=== PATIENT | male | born 1935 | race Caucasian/White ===

== ENCOUNTER 2017-03-05 11:13 | Emergency (ER) | payer MEDICARE, BC ==
[~2017-03-05] VITALS: Ht 182.9 cm; Wt 90.7 kg
--- NOTE | 2017-03-05 11:38 | NUR ---
Pt presents to ED with a c/o weakness and right sided rib pain for since yesterday. breathing unlabored and even. denies trauma. denies chest pain. A-fib on manager human resources. pending diagnostic test results. will monitor.
[2017-03-05] MEDS ORDERED: IOHEXOL 350 100 ML INFUS..BTL ONE (11:41)
[2017-03-05] MEDS ORDERED: IV NORMAL SALINE 250 ML IV ONE (11:41)
[2017-03-05 11:46] LABS: BASOPHILS % (AUTO) 0.2 % (0.0-2.0); HEMATOCRIT 48.5 % (36.7-47.1); HEMOGLOBIN 16.4 g/dL (12.5-16.3); LYMPHOCYTES # (AUTO) 1.5 K/uL (20.0-40.0); LYMPHOCYTES % (AUTO) 9.5 % (20.5-51.5); MEAN CORPUSCULAR HEMOGLOBIN 28.9 uug (23.8-33.4); MEAN CORPUSCULAR HGB CONC 34 g/dL (32.5-36.3); MEAN CORPUSCULAR VOLUME 85.5 fL (73.0-96.2); MONOCYTES # (AUTO) 1.5 K/uL (2.0-10.0); MONOCYTES % (AUTO) 9.5 % (0.0-11.0); NEUTROPHILS # (AUTO) 12.9 K/uL (1.8-8.9); NEUTROPHILS % (AUTO) 80.8 % (38.5-71.5); PLATELET COUNT (AUTO) 155 K/uL (152-348); RED BLOOD CELL COUNT(AUTO) 5.67 MIL/uL (4.06-5.63)
[2017-03-05 11:53] LABS: CARBON DIOXIDE 28 mmol/L (21-32); CHLORIDE 102 mmol/L (98-107); CREATININE 1.3 mg/dL (0.6-1.3); GLUCOSE 190 mg/dL (74-106); POTASSIUM 4.2 mmol/L (3.5-5.1); UREA NITROGEN, BLOOD 12 mg/dL (7-18)
[2017-03-05 11:59] LABS: ALANINE AMINOTRANSFERASE 36 U/L (16-63); ALKALINE PHOSPHATASE 82 U/L (50-136); ASPARTATE AMINOTRANSFERASE 28 U/L (15-37); BILIRUBIN,DIRECT 0.2 mg/dL (0.0-0.2); BILIRUBIN,TOTAL 1.2 mg/dL (0.2-1.0); TOTAL PROTEIN, SERUM 7.7 g/dL (6.4-8.2)
--- NOTE | 2017-03-05 12:14 | NUR ---
Pt left for CT with a tech. Consented for CT Angio.
[2017-03-05 12:44] LABS: *BILIRUBIN,URIN NEGATIVE (NEGATIVE); *BLOOD, URINE Trace-lysed (NEGATIVE); *CLARITY,URINE CLEAR (CLEAR); *COLOR,URINE YELLOW (YELLOW); *KETONES,URINE NEGATIVE (NEGATIVE); *PROTEIN,URINE 1+ (NEGATIVE); *UROBILINOGEN,URINE 0.2 E.U./dl (NORMAL); LEUKOCYTE ESTERASE ,URINE NEGATIVE (NEGATIVE); NITRITE, URINE NEGATIVE (NEGATIVE); UGLUCOSE TRACE (NEGATIVE)
[2017-03-05 12:50] LABS: BACTERIA,URINE FEW /HPF (NONE SEEN); RBC,URINE 0-3 /HPF (0-3); SQUAMOUS EPITHELIAL CELL,UR FEW /HPF (NONE SEEN); WBC,URINE 0-3 /HPF (0-3)
--- NOTE | 2017-03-05 14:00 | NUR ---
pt is alert and oriented x 4. breathing unlabored and even. denies any acute distress. A-fib on financial writer. pending re-eval. by bed side. will continue to monitor.
[2017-03-05 14:19] LABS: LIPASE 109 U/L (73-393)
== END 2017-03-05 14:45 | disposition home or self-care (01) ==
LOC: ER 11:13
DX: I48.91 Unspecified atrial fibrillation (principal); J18.9 Pneumonia, unspecified organism; N20.0 Calculus of kidney; I10 Essential (primary) hypertension; I25.10 Atherosclerotic heart disease of native coronary artery without angina pectoris; I70.0 Atherosclerosis of aorta; Z79.82 Long term (current) use of aspirin
CPT/HCPCS: 36415; 70030-TC; 71275; 83690; 85025; 85730; 93005; A4663; C1758; J7050; Q9967

== ENCOUNTER 2023-11-13 10:45 | Inpatient (IN) | payer MEDICARE, BC ==
[~2023-11-13] VITALS: Ht 185.4 cm; Wt 89.4 kg
[2023-11-13] MEDS ORDERED: METO25TA3 PO (11:00)
[2023-11-13] MEDS ORDERED: SPIR1TAB PO (11:00)
[2023-11-13] MEDS ORDERED: APIX5TAB PO (11:00)
[2023-11-13] MEDS ORDERED: ROSU5TAB PO (11:00)
[2023-11-13] MEDS ORDERED: OLME5TAB3 PO (11:00)
[2023-11-13 11:49] LABS: CALCIUM 8.7 mg/dL (8.5-10.1); CARBON DIOXIDE 27 mmol/L (21-32); CHLORIDE 99 mmol/L (98-107); CREATININE 1.1 mg/dL (0.6-1.3); GLUCOSE 137 mg/dL (74-106); POTASSIUM 4.1 mmol/L (3.5-5.1); SODIUM SERUM 137 mmol/L (136-145); UREA NITROGEN, BLOOD 15 mg/dL (7-18)
[2023-11-13 11:50] LABS: AMMONIA < 10 umol/L (11-32)
[2023-11-13 11:55] LABS: ALANINE AMINOTRANSFERASE 26 U/L (16-63); ALBUMIN 3.7 g/dL (3.4-5.0); ALKALINE PHOSPHATASE 84 U/L (50-136); ASPARTATE AMINOTRANSFERASE 20 U/L (15-37); BILIRUBIN,DIRECT 0.2 mg/dL (0.0-0.2); BILIRUBIN,TOTAL 0.9 mg/dL (0.2-1.0); TOTAL PROTEIN, SERUM 7.2 g/dL (6.4-8.2)
[2023-11-13 12:17] LABS: BASOPHILS % (AUTO) 0.4 % (0.0-2.0); HEMATOCRIT 52.8 % (36.7-47.1); HEMOGLOBIN 17.3 g/dL (12.5-16.3); LYMPHOCYTES # (AUTO) 1.5 K/uL (0.8-4.8); LYMPHOCYTES % (AUTO) 14.6 % (20.5-51.5); MEAN CORPUSCULAR HEMOGLOBIN 28.4 uug (23.8-33.4); MEAN CORPUSCULAR HGB CONC 33 g/dL (32.5-36.3); MEAN CORPUSCULAR VOLUME 86.5 fL (73.0-96.2); MONOCYTES # (AUTO) 1.3 K/uL (0.1-1.30); MONOCYTES % (AUTO) 13.3 % (0.0-11.0); NEUTROPHILS # (AUTO) 7.2 K/uL (1.8-8.9); NEUTROPHILS % (AUTO) 71.7 % (38.5-71.5); PLATELET COUNT (AUTO) 143 K/uL (152-348)
[2023-11-13 12:21] LABS: DIFFERENTIAL COMMENT 1; THYROID STIMULATING HORMONE 0.385 mIU/mL (0.358-3.740)
[2023-11-13] MEDS ORDERED: ONDANSETRON 4 MG/2 ML VIAL IV PRN (15:15)
[2023-11-13] MEDS ORDERED: MAGNESIUM HYDROXIDE 30 ML LIQUID UDC PO PRN (15:15)
[2023-11-13] MEDS ORDERED: ACETAMINOPHEN 325 MG TABLET PO PRN (15:15)
[2023-11-13] MEDS ORDERED: REMEDY ESSENTIAL ZINC PASTE 113 GM TP PRN (15:15)
[2023-11-13 17:33] VITALS: BP 167/74; TEMP 98.6; O2SAT 93
[2023-11-13] MEDS ORDERED: APIXABAN 5 MG TABLET PO SCH (17:45)
[2023-11-13] MEDS ORDERED: METOPROLOL SUCCINATE XL 25 MG TAB.SR.24H PO SCH (17:45)
[2023-11-13] MEDS ORDERED: APIX2.5T PO (18:18)
[2023-11-13] MEDS ORDERED: APIXABAN 5 MG TABLET PO ONE (18:30)
[2023-11-13] MEDS: METOPROLOL SUCCINATE XL 50 MG TAB.SR.24H PO SCH (18:49)
[2023-11-13 20:10] VITALS: BP 158/104; TEMP 98.6; O2SAT 96
[2023-11-13] MEDS: ATORVASTATIN 40 MG TABLET PO SCH (20:29)
[2023-11-13] MEDS: IV 1/2NS 1000 ML 1,000 ML IV PRN (20:29)
[2023-11-13] MEDS: APIXABAN 2.5 MG TABLET PO SCH (21:00)
[2023-11-14 00:26] VITALS: BP 145/99; TEMP 98.1
[2023-11-14 02:55] LABS: *BILIRUBIN,URIN NEGATIVE (NEGATIVE); *CLARITY,URINE CLEAR (CLEAR); *COLOR,URINE YELLOW (YELLOW); *KETONES,URINE NEGATIVE (NEGATIVE); *PROTEIN,URINE 1+ (NEGATIVE); *UROBILINOGEN,URINE 0.2 E.U./dl (NORMAL); LEUKOCYTE ESTERASE ,URINE NEGATIVE (NEGATIVE); NITRITE, URINE NEGATIVE (NEGATIVE); UGLUCOSE NEGATIVE (NEGATIVE)
[2023-11-14 04:49] VITALS: BP 146/99
[2023-11-14 05:40] LABS: *BLOOD, URINE TRACE (NEGATIVE)
[2023-11-14 05:54] LABS: BACTERIA,URINE FEW /HPF (NONE SEEN); RBC,URINE 0-3 /HPF (0-3); SQUAMOUS EPITHELIAL CELL,UR FEW /HPF (NONE SEEN); WBC,URINE NONE SEEN /HPF (0-3)
[2023-11-14 07:29] VITALS: BP 166/115; TEMP 98.3
[2023-11-14 07:42] VITALS: BP 140/87; TEMP 97.5; O2SAT 97
[2023-11-14 07:52] LABS: BASOPHILS % (AUTO) 0.4 % (0.0-2.0); HEMATOCRIT 47.5 % (36.7-47.1); HEMOGLOBIN 16.1 g/dL (12.5-16.3); LYMPHOCYTES # (AUTO) 1.3 K/uL (0.8-4.8); LYMPHOCYTES % (AUTO) 13.3 % (20.5-51.5); MEAN CORPUSCULAR HEMOGLOBIN 29.1 uug (23.8-33.4); MEAN CORPUSCULAR HGB CONC 34 g/dL (32.5-36.3); MONOCYTES # (AUTO) 1.4 K/uL (0.1-1.30); MONOCYTES % (AUTO) 13.4 % (0.0-11.0); NEUTROPHILS # (AUTO) 7.3 K/uL (1.8-8.9); NEUTROPHILS % (AUTO) 72.9 % (38.5-71.5); PLATELET COUNT (AUTO) 125 K/uL (152-348); RED BLOOD CELL COUNT(AUTO) 5.53 MIL/uL (4.06-5.63); RED CELL DISTRIBUTION WIDTH 14.7 % (12.1-16.2); WHITE BLOOD COUNT (AUTO) 10.1 K/uL (3.6-10.2)
[2023-11-14 07:54] LABS: DIFFERENTIAL COMMENT 1
[2023-11-14 08:01] LABS: ALANINE AMINOTRANSFERASE 24 U/L (16-63); ALBUMIN 3.1 g/dL (3.4-5.0); ALKALINE PHOSPHATASE 69 U/L (50-136); ASPARTATE AMINOTRANSFERASE 27 U/L (15-37); BILIRUBIN,TOTAL 0.9 mg/dL (0.2-1.0); CALCIUM 8.4 mg/dL (8.5-10.1); CARBON DIOXIDE 22 mmol/L (21-32); CHLORIDE 101 mmol/L (98-107); GLUCOSE 142 mg/dL (74-106); MAGNESIUM 1.9 mg/dL (1.8-2.4); PHOSPHOROUS 3.3 mg/dL (2.5-4.9); POTASSIUM 4.1 mmol/L (3.5-5.1); SODIUM SERUM 135 mmol/L (136-145); TOTAL PROTEIN, SERUM 6.4 g/dL (6.4-8.2); UREA NITROGEN, BLOOD 20 mg/dL (7-18)
[2023-11-14] MEDS ORDERED: SPIRONOLACTONE 50 MG TABLET PO SCH (09:00)
[2023-11-14] MEDS: SPIRONOLACTONE 25 MG TABLET PO SCH (09:46)
[2023-11-14 15:57] VITALS: BP 128/77; TEMP 97.6; O2SAT 97
[2023-11-14 20:37] VITALS: BP 157/94; TEMP 98.4; O2SAT 96
[2023-11-15 00:12] VITALS: BP 147/77; TEMP 98.5; O2SAT 97
[2023-11-15 04:00] VITALS: BP 160/86; TEMP 98.6; O2SAT 96
[2023-11-15 07:28] VITALS: BP 152/101; TEMP 98.5; O2SAT 97
[2023-11-15 09:45] LABS: ABG BASE EXCESS -0.5 mmol/L (-2.0-2.0); ABG PCO2 31.4 mmHg (35.0-48.0); ABG PH 7.463 (7.340-7.440); ABG PO2 65.9 mmHg (75.0-100.0); ABG SITE LEFT RADIAL; ABG TOTAL HEMOGLOBIN 17.9 G/dL (14.0-18.0); AaDO2 94.3 mmHg; COHb 0.6 % (0.0-3.9); MetHb 0.2 % (0.0-1.5); O2Hb 93.5 % (94.0-97.0)
[2023-11-15 09:48] LABS: BASOPHILS % (AUTO) 0.2 % (0.0-2.0); HEMATOCRIT 50.5 % (36.7-47.1); HEMOGLOBIN 16.9 g/dL (12.5-16.3); LYMPHOCYTES # (AUTO) 1.9 K/uL (0.8-4.8); LYMPHOCYTES % (AUTO) 19.7 % (20.5-51.5); MEAN CORPUSCULAR HEMOGLOBIN 28.9 uug (23.8-33.4); MEAN CORPUSCULAR HGB CONC 34 g/dL (32.5-36.3); MONOCYTES # (AUTO) 1.2 K/uL (0.1-1.30); MONOCYTES % (AUTO) 12.3 % (0.0-11.0); NEUTROPHILS # (AUTO) 6.7 K/uL (1.8-8.9); NEUTROPHILS % (AUTO) 67.8 % (38.5-71.5); PLATELET COUNT (AUTO) 130 K/uL (152-348); RED BLOOD CELL COUNT(AUTO) 5.87 MIL/uL (4.06-5.63); RED CELL DISTRIBUTION WIDTH 14.8 % (12.1-16.2); WHITE BLOOD COUNT (AUTO) 9.9 K/uL (3.6-10.2)
[2023-11-15 09:55] LABS: DIFFERENTIAL COMMENT 1
[2023-11-15 10:15] LABS: ALANINE AMINOTRANSFERASE 25 U/L (16-63); ALKALINE PHOSPHATASE 72 U/L (50-136); ASPARTATE AMINOTRANSFERASE 27 U/L (15-37); CALCIUM 8.2 mg/dL (8.5-10.1); CARBON DIOXIDE 27 mmol/L (21-32); CHLORIDE 97 mmol/L (98-107); CREATININE 1.2 mg/dL (0.6-1.3); GLUCOSE 141 mg/dL (74-106); NT-PRO BNP 1008 pg/mL (0-125); POTASSIUM 3.9 mmol/L (3.5-5.1); SODIUM SERUM 133 mmol/L (136-145); TOTAL PROTEIN, SERUM 6.8 g/dL (6.4-8.2); UREA NITROGEN, BLOOD 19 mg/dL (7-18)
[2023-11-15 10:16] LABS: C-REACTIVE PROTEIN 7.38 mg/dL (0.00-0.30)
[2023-11-15 11:31] VITALS: BP 150/95; TEMP 98.2; O2SAT 96
[2023-11-15] MEDS: FUROSEMIDE 20 MG/2 ML VIAL IV ONE (14:13)
[2023-11-15 15:09] LABS: THYROID STIMULATING HORMONE 1.313 mIU/mL (0.358-3.740)
[2023-11-15 16:16] VITALS: BP 128/77; TEMP 98.5; O2SAT 95
[2023-11-15] MEDS: BLOOD SUGAR DIAGNOSTIC 1 EACH STRIP VI SCH (17:45)
[2023-11-15] MEDS ORDERED: DEXTROSE 50% 50 ML DISP.SYRIN IV PRN (17:45)
[2023-11-15 19:57] VITALS: BP 137/90; TEMP 97.9; O2SAT 95
[2023-11-15] MEDS: INSULIN REGULAR, HUMAN 300 UNITS/3 ML VIAL SQ PRN (20:42)
[2023-11-16 00:05] VITALS: BP 120/73; TEMP 97.7; O2SAT 95
[2023-11-16 04:11] VITALS: BP 143/80; TEMP 98.4; O2SAT 94
[2023-11-16 06:24] LABS: BASOPHILS % (AUTO) 0.3 % (0.0-2.0); EOSINOPHILS % (AUTO) 0.5 % (0.0-7.0); HEMATOCRIT 50.2 % (36.7-47.1); HEMOGLOBIN 17.1 g/dL (12.5-16.3); LYMPHOCYTES # (AUTO) 1.8 K/uL (0.8-4.8); LYMPHOCYTES % (AUTO) 25.4 % (20.5-51.5); MEAN CORPUSCULAR HEMOGLOBIN 29.1 uug (23.8-33.4); MEAN CORPUSCULAR HGB CONC 34 g/dL (32.5-36.3); MEAN CORPUSCULAR VOLUME 85.5 fL (73.0-96.2); MONOCYTES % (AUTO) 13.5 % (0.0-11.0); NEUTROPHILS # (AUTO) 4.4 K/uL (1.8-8.9); NEUTROPHILS % (AUTO) 60.3 % (38.5-71.5); PLATELET COUNT (AUTO) 121 K/uL (152-348); RED BLOOD CELL COUNT(AUTO) 5.87 MIL/uL (4.06-5.63); RED CELL DISTRIBUTION WIDTH 14.5 % (12.1-16.2); WHITE BLOOD COUNT (AUTO) 7.3 K/uL (3.6-10.2)
[2023-11-16 06:28] LABS: DIFFERENTIAL COMMENT 1
[2023-11-16 06:37] LABS: CALCIUM 8.4 mg/dL (8.5-10.1); CARBON DIOXIDE 25 mmol/L (21-32); CHLORIDE 100 mmol/L (98-107); CREATININE 1.1 mg/dL (0.6-1.3); GLUCOSE 118 mg/dL (74-106); MAGNESIUM 1.9 mg/dL (1.8-2.4); POTASSIUM 3.3 mmol/L (3.5-5.1); SODIUM SERUM 134 mmol/L (136-145); UREA NITROGEN, BLOOD 23 mg/dL (7-18)
[2023-11-16 07:54] VITALS: BP 122/84; TEMP 97; O2SAT 93
[2023-11-16] MEDS: INSULIN REGULAR, HUMAN 1000 UNIT/10 ML VIAL SQ PRN (11:22)
[2023-11-16 11:33] VITALS: BP 120/76; TEMP 97.8; O2SAT 93
[2023-11-16] MEDS: POTASSIUM CHLORIDE 20 MEQ TAB.PRT.SR PO ONE (13:10)
[2023-11-16 16:31] VITALS: BP 106/74; TEMP 97.7; O2SAT 97
[2023-11-16 19:00] VITALS: BP 133/81; TEMP 98.5; O2SAT 94
[2023-11-17] VITALS (8 sets, daily range): BP systolic 121–155; BP diastolic 70–94; TEMP 97.6–98.5; O2SAT 94–96
[2023-11-17] MEDS: AMLODIPINE 5 MG TABLET PO SCH (10:05)
[2023-11-18 04:00] VITALS: BP 147/86; TEMP 98.5; O2SAT 86
[2023-11-18 04:15] VITALS: BP 147/86; TEMP 98.5; O2SAT 94
[2023-11-18 06:58] LABS: CALCIUM 8.6 mg/dL (8.5-10.1); CARBON DIOXIDE 30 mmol/L (21-32); CHLORIDE 100 mmol/L (98-107); CREATININE 1.2 mg/dL (0.6-1.3); GLUCOSE 134 mg/dL (74-106); MAGNESIUM 1.7 mg/dL (1.8-2.4); PHOSPHOROUS 3.1 mg/dL (2.5-4.9); POTASSIUM 3.9 mmol/L (3.5-5.1); SODIUM SERUM 136 mmol/L (136-145); UREA NITROGEN, BLOOD 18 mg/dL (7-18)
[2023-11-18 07:01] LABS: BASOPHILS % (AUTO) 0.2 % (0.0-2.0); DIFFERENTIAL COMMENT 1; EOSINOPHILS % (AUTO) 0.2 % (0.0-7.0); HEMATOCRIT 49.7 % (36.7-47.1); HEMOGLOBIN 16.6 g/dL (12.5-16.3); LYMPHOCYTES # (AUTO) 1.2 K/uL (0.8-4.8); LYMPHOCYTES % (AUTO) 8.8 % (20.5-51.5); MEAN CORPUSCULAR HEMOGLOBIN 28.6 uug (23.8-33.4); MEAN CORPUSCULAR HGB CONC 33 g/dL (32.5-36.3); MEAN CORPUSCULAR VOLUME 85.7 fL (73.0-96.2); MONOCYTES # (AUTO) 0.9 K/uL (0.1-1.30); MONOCYTES % (AUTO) 6.5 % (0.0-11.0); NEUTROPHILS # (AUTO) 11.3 K/uL (1.8-8.9); NEUTROPHILS % (AUTO) 84.3 % (38.5-71.5); PLATELET COUNT (AUTO) 146 K/uL (152-348); RED CELL DISTRIBUTION WIDTH 14.4 % (12.1-16.2); WHITE BLOOD COUNT (AUTO) 13.4 K/uL (3.6-10.2)
[2023-11-18 11:35] VITALS: BP 141/85; TEMP 97.8; O2SAT 96
[2023-11-18] MEDS: MAGNESIUM OXIDE 400 MG TABLET PO ONE (12:10)
[2023-11-18] MEDS ORDERED: ALBUTEROL SULFATE 1.25 MG/3 ML NEBU NEB PRN (13:45)
[2023-11-18] MEDS ORDERED: ACET325T53 PO (14:02)
[2023-11-18] MEDS ORDERED: SPIR25TA PO (14:02)
[2023-11-18] MEDS ORDERED: APIX2.5T PO (14:02)
[2023-11-18] MEDS ORDERED: MAGN400O6 PO (14:02)
[2023-11-18] MEDS ORDERED: AMLO-212 PO (14:02)
[2023-11-18] MEDS ORDERED: FAMO10TA41 PO (14:02)
[2023-11-18] MEDS ORDERED: MULT-1045 PO (14:02)
[2023-11-18] MEDS ORDERED: ASCO500C18 PO (14:02)
[2023-11-18] MEDS ORDERED: ALBU1.25 NEB (14:02)
[2023-11-18] MEDS ORDERED: METO-357 PO (14:02)
[2023-11-18] MEDS ORDERED: MENT113O TP (14:02)
[2023-11-18] MEDS ORDERED: ATOR10TA PO (14:05)
[2023-11-18 16:00] VITALS: BP 134/71; TEMP 97.3; O2SAT 95
== END 2023-11-18 19:03 | DRG 177 ==
LOC: ER 10:45 → TELE3 15:55 → MEDSURG3 11-17 09:17
PROVIDERS: ADMIT Internal Medicine; ATTEND Internal Medicine
DX: U07.1 COVID-19 (principal); G92.8 Other toxic encephalopathy; I50.23 Acute on chronic systolic (congestive) heart failure; J12.82 Pneumonia due to coronavirus disease 2019; D68.69 Other thrombophilia; G91.9 Hydrocephalus, unspecified; I48.20 Chronic atrial fibrillation, unspecified; I48.91 Unspecified atrial fibrillation; D72.829 Elevated white blood cell count, unspecified; E11.9 Type 2 diabetes mellitus without complications; E83.42 Hypomagnesemia; E87.6 Hypokalemia; Z79.01 Long term (current) use of anticoagulants; Z86.73 Personal history of transient ischemic attack (TIA), and cerebral infarction without residual deficits; I25.10 Atherosclerotic heart disease of native coronary artery without angina pectoris; I25.2 Old myocardial infarction; G93.89 Other specified disorders of brain; I11.0 Hypertensive heart disease with heart failure; Z86.61 Personal history of infections of the central nervous system; F01.50 Vascular dementia, unspecified severity, without behavioral disturbance, psychotic disturbance, mood disturbance, and anxiety; R93.1 Abnormal findings on diagnostic imaging of heart and coronary circulation
CPT/HCPCS: 36415; 36600; 70450; 71045; 82803; 83735; 83921; 84100; 84443; 85025; 85730; 86140; 93005; 93307; 94640; A4663; A6213; C1758; G0378; J1815; J1940

== ENCOUNTER 2024-09-24 01:05 | Inpatient (IN) | payer MEDICARE, BC ==
[~2024-09-24] VITALS: Ht 182.9 cm; Wt 82.6 kg
[2024-09-24] VITALS (9 sets, daily range): BP systolic 90–157; BP diastolic 56–91; TEMP 97.4–98.6; O2SAT 95–98
[~2024-09-24 01:05] MED LIST: ACET325T53 PO; ALBU1.25 NEB; AMLO-212 PO; APIX2.5T PO; ASCO500C18 PO; ATOR10TA PO; FAMO10TA41 PO; MAGN400O6 PO; MENT113O TP; METO-357 PO; MULT-1045 PO; SPIR25TA PO
[2024-09-24 01:30] LABS: PLATELET COUNT (AUTO) 173 K/uL (179-408); RED BLOOD CELL COUNT(AUTO) 5.25 MIL/uL (3.63-4.92); RED CELL DISTRIBUTION WIDTH 17.6 % (12.3-17.7); WHITE BLOOD COUNT (AUTO) 16.3 K/uL (3.8-11.8)
[2024-09-24 01:38] LABS: CREATININE 1.1 mg/dL (0.6-1.3); SODIUM SERUM 141 mmol/L (136-145); UREA NITROGEN, BLOOD 12 mg/dL (7-18)
[2024-09-24 01:44] LABS: ASPARTATE AMINOTRANSFERASE 14 U/L (15-37); TOTAL PROTEIN, SERUM 6.6 g/dL (6.4-8.2)
[2024-09-24] MEDS: CEFTRIAXONE 1 G in IV DEXTROSE 5% 50 ML IV ONE (02:31)
[2024-09-24] MEDS ORDERED: CEFTRIAXONE /D5W 50ML IVPB **ER PYXIS IV ONE (02:32)
[2024-09-24] MEDS ORDERED: AZITHROMYCIN 500MG/ D5W 250ML IVPB **ER PYXIS ONLY IV ONE (02:46)
[2024-09-24] MEDS ORDERED: METF-440 PO (02:51)
[2024-09-24] MEDS ORDERED: ATOR10TA PO (02:51)
[2024-09-24] MEDS ORDERED: SACU1TAB PO (02:51)
[2024-09-24] MEDS ORDERED: METO-356 PO (02:51)
[2024-09-24] MEDS ORDERED: APIX5TAB PO (02:51)
[2024-09-24] MEDS ORDERED: DIGO125T PO (02:51)
[2024-09-24] MEDS: AZITHROMYCIN IV 500 MG in IV DEXTROSE 5% 250 ML IV ONE (02:54)
[2024-09-24] MEDS ORDERED: ACETAMINOPHEN 325 MG TABLET PO PRN (03:00)
[2024-09-24] MEDS ORDERED: ONDANSETRON 4 MG/2 ML VIAL IV PRN (03:00)
[2024-09-24] MEDS ORDERED: REMEDY ESSENTIAL ZINC PASTE 113 GM TP PRN (03:00)
[2024-09-24] MEDS ORDERED: MAGNESIUM HYDROXIDE 30 ML LIQUID UDC PO PRN (03:00)
[2024-09-24 03:23] LABS: *BILIRUBIN,URIN NEGATIVE (NEGATIVE); *BLOOD, URINE 1+ (NEGATIVE); *CLARITY,URINE CLEAR (CLEAR); *COLOR,URINE YELLOW (YELLOW); *KETONES,URINE NEGATIVE (NEGATIVE); *PROTEIN,URINE TRACE (NEGATIVE); *UROBILINOGEN,URINE 0.2 E.U./dl (NORMAL); LEUKOCYTE ESTERASE ,URINE 2+ (NEGATIVE); NITRITE, URINE POSITIVE (NEGATIVE); UGLUCOSE NEGATIVE (NEGATIVE)
[2024-09-24 05:20] LABS: SQUAMOUS EPITHELIAL CELL,UR NONE SEEN /HPF (NONE SEEN)
[2024-09-24] MEDS: PANTOPRAZOLE SODIUM 40 MG TABLET.DR PO SCH (06:39)
[2024-09-24] MEDS ORDERED: ATOR20TA PO (10:58)
[2024-09-24] MEDS: APIXABAN 5 MG TABLET PO SCH (12:47)
[2024-09-24] MEDS ORDERED: DIGO125T5 PO (18:31)
[2024-09-24] MEDS: ATORVASTATIN 20 MG TABLET PO SCH (20:23)
[2024-09-24] MEDS: CEFTRIAXONE 1 G in IV DEXTROSE 5% 50 ML IV SCH (21:19)
[2024-09-24] MEDS: AZITHROMYCIN IV 500 MG in IV DEXTROSE 5% 250 ML IV SCH (22:14)
[2024-09-25 07:48] VITALS: BP 123/67; TEMP 97.9; O2SAT 96
[2024-09-25] MEDS: METOPROLOL SUCCINATE XL 25 MG TAB.SR.24H PO SCH (08:51)
[2024-09-25 09:07] LABS: PLATELET COUNT (AUTO) 193 K/uL (152-348); RED BLOOD CELL COUNT(AUTO) 5.27 MIL/uL (4.06-5.63); RED CELL DISTRIBUTION WIDTH 17.4 % (12.1-16.2); WHITE BLOOD COUNT (AUTO) 10.9 K/uL (3.6-10.2)
[2024-09-25 09:17] LABS: CREATININE 0.9 mg/dL (0.6-1.3); SODIUM SERUM 140 mmol/L (136-145); UREA NITROGEN, BLOOD 8 mg/dL (7-18)
[2024-09-25 12:00] VITALS: BP 121/68; TEMP 98; O2SAT 95
[2024-09-25 16:10] VITALS: BP 124/73; TEMP 98; O2SAT 97
[2024-09-25 19:40] VITALS: BP 117/64; TEMP 98.4; O2SAT 96
[2024-09-26] VITALS: BP 130/79; TEMP 97.5; O2SAT 97
[2024-09-26 04:00] VITALS: BP 153/78; TEMP 97.5; O2SAT 96
[2024-09-26 07:30] LABS: PLATELET COUNT (AUTO) 199 K/uL (152-348); RED BLOOD CELL COUNT(AUTO) 5.09 MIL/uL (4.06-5.63); RED CELL DISTRIBUTION WIDTH 17.3 % (12.1-16.2); WHITE BLOOD COUNT (AUTO) 9.1 K/uL (3.6-10.2)
[2024-09-26] MEDS: CEFTRIAXONE 1 G in IV DEXTROSE 5% 50 ML IV SCH (07:40)
[2024-09-26 07:52] LABS: CREATININE 1.2 mg/dL (0.6-1.3); SODIUM SERUM 139 mmol/L (136-145); UREA NITROGEN, BLOOD 10 mg/dL (7-18)
[2024-09-26 07:53] VITALS: BP 120/67; TEMP 97.4; O2SAT 96
[2024-09-26] MEDS: AZITHROMYCIN IV 500 MG in IV DEXTROSE 5% 250 ML IV SCH (08:44)
[2024-09-26 16:00] VITALS: BP 118/72; TEMP 97.6; O2SAT 97
[2024-09-26 19:50] VITALS: BP 141/60; TEMP 97.4; O2SAT 98
[2024-09-27 00:11] VITALS: BP 142/83; TEMP 97.8; O2SAT 98
[2024-09-27 05:03] VITALS: BP 138/76; TEMP 97.7; O2SAT 97
[2024-09-27 07:02] LABS: PLATELET COUNT (AUTO) 218 K/uL (152-348); RED BLOOD CELL COUNT(AUTO) 5.00 MIL/uL (4.06-5.63); RED CELL DISTRIBUTION WIDTH 16.9 % (12.1-16.2); WHITE BLOOD COUNT (AUTO) 8.9 K/uL (3.6-10.2)
[2024-09-27 07:29] LABS: CREATININE 1.0 mg/dL (0.6-1.3); SODIUM SERUM 139 mmol/L (136-145); UREA NITROGEN, BLOOD 12 mg/dL (7-18)
[2024-09-27 08:00] VITALS: BP 143/66; TEMP 97.3; O2SAT 97
[2024-09-27] MEDS ORDERED: ACET325T53 PO ×2 (11:06→16:47)
[2024-09-27] MEDS ORDERED: CEFT1VIA15 IV (11:06)
[2024-09-27] MEDS ORDERED: MAGN400O6 PO ×2 (11:06→16:48)
[2024-09-27] MEDS ORDERED: PANT40TA49 PO (11:06)
[2024-09-27] MEDS ORDERED: ONDA4VIA23 IV ×2 (11:06→16:49)
[2024-09-27 12:00] VITALS: BP 121/62; TEMP 97.5; O2SAT 98
[2024-09-27] MEDS ORDERED: CEFT1FRO2 IV (16:51)
== END 2024-09-27 15:40 | DRG 73 ==
LOC: EDSEX 01:08 → ER 01:08 → MERGE 03:05 → TELE3 03:05 → MEDSURG3 09-27 10:10
PROVIDERS: ADMIT Student in an Organized Health Care Education/Training Program; ATTEND Nurse Practitioner Family
DX: G90.89 Other disorders of autonomic nervous system (principal); G93.41 Metabolic encephalopathy; N39.0 Urinary tract infection, site not specified; I69.354 Hemiplegia and hemiparesis following cerebral infarction affecting left non-dominant side; I42.9 Cardiomyopathy, unspecified; I50.22 Chronic systolic (congestive) heart failure; I48.20 Chronic atrial fibrillation, unspecified; I95.1 Orthostatic hypotension; B96.89 Other specified bacterial agents as the cause of diseases classified elsewhere; G93.89 Other specified disorders of brain; Z79.01 Long term (current) use of anticoagulants; Z79.899 Other long term (current) drug therapy; I11.0 Hypertensive heart disease with heart failure; E78.5 Hyperlipidemia, unspecified; E11.9 Type 2 diabetes mellitus without complications; Z79.84 Long term (current) use of oral hypoglycemic drugs; Z98.890 Other specified postprocedural states; E88.09 Other disorders of plasma-protein metabolism, not elsewhere classified
CPT/HCPCS: 36415; 70450; 71045; 83735; 84100; 84443; 84484; 85025; 85730; 87040; 87086; 93307; 93880; A4606; A4663; C1758; G0378; J0456; J0696; J7040; J7050

== ENCOUNTER 2024-09-27 13:51 | Inpatient (IN) | payer MEDICARE, BC ==
[~2024-09-27] VITALS: Ht 182.9 cm; Wt 82.6 kg
[~2024-09-27 13:51] MED LIST changes: +APIX5TAB PO; +ATOR20TA PO; +CEFT1VIA15 IV; +DIGO125T5 PO; +METO-356 PO; +ONDA4VIA23 IV; +PANT40TA49 PO
[2024-09-27 13:57] VITALS: BP 121/62; TEMP 97.7
[2024-09-27 14:22] VITALS: BP 121/62; TEMP 97.7
[2024-09-27 16:00] VITALS: BP 116/71; TEMP 97.4; O2SAT 98
[2024-09-27] MEDS ORDERED: ACET325T53 PO (16:47)
[2024-09-27] MEDS ORDERED: MAGN400O6 PO (16:48)
[2024-09-27] MEDS ORDERED: ONDA4VIA23 IV (16:49)
[2024-09-27] MEDS ORDERED: CEFT1FRO2 IV (16:51)
[2024-09-27] MEDS ORDERED: ONDANSETRON 4 MG/2 ML VIAL IV PRN (18:30)
[2024-09-27] MEDS ORDERED: ACETAMINOPHEN 325 MG TABLET-SA PATIENTS-PAIN ONLY PO PRN (18:30)
[2024-09-27 19:53] VITALS: BP 112/67; TEMP 97.9; O2SAT 96
[2024-09-27] MEDS: ATORVASTATIN 20 MG TABLET PO SCH (20:49)
[2024-09-27] MEDS: APIXABAN 5 MG TABLET PO SCH (20:55)
[2024-09-28 05:20] VITALS: BP 115/69; TEMP 98; O2SAT 96
[2024-09-28] MEDS ORDERED: ONDANSETRON 4 MG/2 ML VIAL IV PRN (05:45)
[2024-09-28] MEDS ORDERED: ACETAMINOPHEN 325 MG TABLET PO PRN (05:45)
[2024-09-28] MEDS: PANTOPRAZOLE SODIUM 40 MG TABLET.DR PO SCH (06:06)
[2024-09-28 08:23] VITALS: BP 128/95; TEMP 97.8; O2SAT 96
[2024-09-28] MEDS: DIGOXIN 125 MCG TABLET PO SCH (08:28)
[2024-09-28] MEDS: METOPROLOL SUCCINATE XL 25 MG TAB.SR.24H PO SCH (08:28)
[2024-09-28] MEDS: CEFTRIAXONE 1 G in IV DEXTROSE 5% 50 ML IV SCH (09:46)
[2024-09-28 16:48] VITALS: BP 117/53; TEMP 97.7; O2SAT 99
[2024-09-28 19:55] VITALS: BP 110/78; TEMP 97.7; O2SAT 98
[2024-09-28] MEDS: MAGNESIUM HYDROXIDE 30 ML LIQUID UDC PO PRN (22:04)
[2024-09-28 23:03] LABS: *BILIRUBIN,URIN NEGATIVE (NEGATIVE); *CLARITY,URINE CLEAR (CLEAR); *COLOR,URINE YELLOW (YELLOW); *KETONES,URINE NEGATIVE (NEGATIVE); *PROTEIN,URINE NEGATIVE (NEGATIVE); *UROBILINOGEN,URINE 0.2 E.U./dl (NORMAL); LEUKOCYTE ESTERASE ,URINE 1+ (NEGATIVE); NITRITE, URINE NEGATIVE (NEGATIVE); UGLUCOSE NEGATIVE (NEGATIVE)
[2024-09-28 23:05] LABS: *BLOOD, URINE TRACE (NEGATIVE)
[2024-09-28 23:08] LABS: SQUAMOUS EPITHELIAL CELL,UR NONE SEEN /HPF (NONE SEEN)
[2024-09-29 05:47] VITALS: BP 122/73; TEMP 97.6; O2SAT 97
[2024-09-29 08:22] VITALS: BP 113/67; TEMP 97.6; O2SAT 95
[2024-09-29 18:53] VITALS: BP 122/50; TEMP 97.6; O2SAT 94
[2024-09-29 20:00] VITALS: BP 104/48; TEMP 97.5; O2SAT 96
[2024-09-30 06:29] VITALS: BP 123/67; TEMP 97.5; O2SAT 97
[2024-09-30 08:00] VITALS: BP 116/77; TEMP 97.1; O2SAT 97
[2024-09-30 16:00] VITALS: BP 123/68; TEMP 97.1; O2SAT 97
[2024-09-30 20:00] VITALS: BP 119/68; TEMP 98.4
[2024-10-01 07:04] VITALS: BP 115/67; TEMP 97.8
[2024-10-01 13:33] LABS: PLATELET COUNT (AUTO) 261 K/uL (152-348); RED BLOOD CELL COUNT(AUTO) 5.09 MIL/uL (4.06-5.63); RED CELL DISTRIBUTION WIDTH 16.9 % (12.1-16.2); WHITE BLOOD COUNT (AUTO) 10.6 K/uL (3.6-10.2)
[2024-10-01 13:50] LABS: ASPARTATE AMINOTRANSFERASE 14 U/L (15-37); CREATININE 0.9 mg/dL (0.6-1.3); SODIUM SERUM 140 mmol/L (136-145); TOTAL PROTEIN, SERUM 7.0 g/dL (6.4-8.2); UREA NITROGEN, BLOOD 15 mg/dL (7-18)
[2024-10-01 16:01] VITALS: BP 129/62; TEMP 98.2; O2SAT 97
[2024-10-01 20:09] VITALS: BP 104/56; TEMP 97.8; O2SAT 98
[2024-10-02 05:56] VITALS: BP 155/77; TEMP 98.1; O2SAT 95
[2024-10-02 08:02] VITALS: BP 118/43; TEMP 97.9; O2SAT 96
[2024-10-02 20:05] VITALS: BP 113/64; TEMP 98; O2SAT 95
[2024-10-03 08:31] VITALS: BP 132/73; TEMP 97.8; O2SAT 97
[2024-10-03 16:12] VITALS: BP 115/62; TEMP 98; O2SAT 99
[2024-10-03 20:39] VITALS: BP 115/66; TEMP 98.2; O2SAT 95
[2024-10-04 06:56] VITALS: BP 117/52; TEMP 97.5; O2SAT 95
[2024-10-04 08:16] VITALS: BP 133/65; TEMP 98; O2SAT 97
[2024-10-04 08:59] VITALS: BP 142/96; TEMP 97.6; O2SAT 97
[2024-10-04 17:37] VITALS: BP 106/59; TEMP 97.4; O2SAT 95
[2024-10-04 20:45] VITALS: BP 105/54; TEMP 97.6; O2SAT 96
[2024-10-05 06:23] VITALS: BP 123/66; TEMP 97.6; O2SAT 96
[2024-10-05 13:16] LABS: PLATELET COUNT (AUTO) 310 K/uL (152-348); RED BLOOD CELL COUNT(AUTO) 5.35 MIL/uL (4.06-5.63); RED CELL DISTRIBUTION WIDTH 16.4 % (12.1-16.2); WHITE BLOOD COUNT (AUTO) 8.0 K/uL (3.6-10.2)
[2024-10-05 13:35] LABS: ASPARTATE AMINOTRANSFERASE 16 U/L (15-37); CREATININE 0.9 mg/dL (0.6-1.3); SODIUM SERUM 138 mmol/L (136-145); TOTAL PROTEIN, SERUM 7.3 g/dL (6.4-8.2); UREA NITROGEN, BLOOD 14 mg/dL (7-18)
[2024-10-05] MEDS: ENSURE ENLIVE (VAN) 240 ML LIQUID PO SCH (17:06)
[2024-10-05 20:58] VITALS: BP 121/58; TEMP 97.2; O2SAT 95
[2024-10-06 06:51] VITALS: BP 137/86; TEMP 97.7; O2SAT 97
[2024-10-06 08:20] VITALS: BP 122/66; TEMP 97; O2SAT 95
[2024-10-06 16:39] VITALS: BP 100/50; TEMP 97.8; O2SAT 98
[2024-10-06 20:24] VITALS: BP 100/62; TEMP 97.6; O2SAT 97
[2024-10-07 05:09] VITALS: BP 111/65; TEMP 97.5; O2SAT 98
[2024-10-07 16:24] VITALS: BP 115/61; TEMP 98; O2SAT 97
[2024-10-07 19:53] VITALS: BP 111/66; TEMP 97.8; O2SAT 98
[2024-10-08 06:43] VITALS: BP 114/53; TEMP 98
[2024-10-08 08:00] VITALS: BP 129/57; TEMP 97.9; O2SAT 98
[2024-10-08 16:00] VITALS: BP 136/81; TEMP 97.9; O2SAT 98
[2024-10-08 20:09] VITALS: BP 124/55; TEMP 97.9; O2SAT 96
[2024-10-09 06:43] VITALS: BP 119/59; TEMP 97.9; O2SAT 96
[2024-10-09 08:00] VITALS: BP 101/54; TEMP 97.3; O2SAT 96
[2024-10-09 16:00] VITALS: BP 102/57; TEMP 97.6; O2SAT 99
[2024-10-09 21:18] VITALS: BP 113/65; TEMP 97.7; O2SAT 96
[2024-10-10 07:51] VITALS: BP 116/74; TEMP 97.6; O2SAT 98
[2024-10-10 16:00] VITALS: BP 106/70; TEMP 97.2; O2SAT 98
[2024-10-10 20:29] VITALS: BP 108/51; TEMP 97.2; O2SAT 98
[2024-10-11 05:00] VITALS: BP 111/65; TEMP 97.5; O2SAT 98
[2024-10-11 08:03] VITALS: BP 85/43; TEMP 97.5
[2024-10-11 16:01] VITALS: BP 144/77; TEMP 97.6; O2SAT 100
[2024-10-11 20:13] VITALS: BP 93/54; TEMP 98; O2SAT 94
[2024-10-12 07:00] VITALS: BP 102/56; TEMP 98.1; O2SAT 95
[2024-10-12 08:50] VITALS: BP 105/67; TEMP 97.5; O2SAT 97
== END 2024-10-12 15:20 | disposition home health service (06) | DRG 73 ==
PROVIDERS: ADMIT Physical Medicine & Rehabilitation Pain Medicine; ATTEND Physical Medicine & Rehabilitation Pain Medicine
DX: G90.89 Other disorders of autonomic nervous system (principal); G92.8 Other toxic encephalopathy; N39.0 Urinary tract infection, site not specified; I50.22 Chronic systolic (congestive) heart failure; I69.354 Hemiplegia and hemiparesis following cerebral infarction affecting left non-dominant side; I48.20 Chronic atrial fibrillation, unspecified; D68.59 Other primary thrombophilia; E44.0 Moderate protein-calorie malnutrition; I42.9 Cardiomyopathy, unspecified; R55 Syncope and collapse; R53.1 Weakness; E78.5 Hyperlipidemia, unspecified; I11.0 Hypertensive heart disease with heart failure; Z79.01 Long term (current) use of anticoagulants; B96.89 Other specified bacterial agents as the cause of diseases classified elsewhere; E11.51 Type 2 diabetes mellitus with diabetic peripheral angiopathy without gangrene; F03.90 Unspecified dementia, unspecified severity, without behavioral disturbance, psychotic disturbance, mood disturbance, and anxiety; I25.10 Atherosclerotic heart disease of native coronary artery without angina pectoris; G93.89 Other specified disorders of brain; I25.2 Old myocardial infarction; I35.8 Other nonrheumatic aortic valve disorders; I70.0 Atherosclerosis of aorta; Z86.16 Personal history of COVID-19; Z95.5 Presence of coronary angioplasty implant and graft
CPT/HCPCS: 36415; 85025; 87086; 97535-GO-CO; A4663; J0696; J7040